=== PATIENT | male | born 1985 | race Caucasian/White ===

== ENCOUNTER 2019-11-16 18:29 | Emergency (ER) | payer MEDICAID, SELFPAY ==
[~2019-11-16] VITALS: Ht 177.8 cm; Wt 70.8 kg
[2019-11-16 18:32] VITALS: BP 117/72
[2019-11-16] MEDS ORDERED: TETanus/Pertussis (Acell)/Diphther VAC/PF (Tdap-Adult) 0.5ml syringe IMVAC ONE (19:35)
[2019-11-16] MEDS ORDERED: iohexol 300mg/ml 100ml inj. ONE (19:38)
[2019-11-16 20:12] LABS: BASOPHILS # (AUTO) 0.1 X10'3 (0-0.2); BASOPHILS % (AUTO) 0.6 % (0-1); EOSINOPHILS % (AUTO) 0.5 % (0-6); HEMATOCRIT 39.2 % (42.0-52.0); HEMOGLOBIN 13.9 g/dl (14.0-17.9); LYMPHOCYTES # (AUTO) 1.7 X10'3 (1.1-4.8); MEAN CORPUSCULAR HEMOGLOBIN 32.8 PG (27.0-31.0); MEAN CORPUSCULAR HGB CONC 35.4 g/dL (33.0-36.5); MEAN CORPUSCULAR VOLUME 92.8 FL (78-98); MEAN PLATELET VOLUME 9.9 FL (7.4-10.4); MONOCYTES # (AUTO) 0.5 X10'3 (0-0.9); MONOCYTES % (AUTO) 5.8 % (2-12); NEUTROPHILS # (AUTO) 6.9 X10'3 (1.8-7.7); NEUTROPHILS % (AUTO) 75.1 % (42-75); PLATELET COUNT 155 X10'3 (140-440); RED BLOOD COUNT 4.23 X10'6 (4.70-6.10); RED CELL DISTRIBUTION WIDTH 12.8 % (11.5-14.5); WHITE BLOOD COUNT 9.2 X10'3 (4.5-11.0)
[2019-11-16 20:22] LABS: ALANINE AMINOTRANSFERASE 29 U/L (12-78); ALBUMIN 3.8 G/DL (3.4-5.0); ALBUMIN/GLOBULIN RATIO 1.2 (1.1-1.5); ALKALINE PHOSPHATASE 85 IU/L (46-116); ANION GAP 8 (8-16); ASPARTATE AMINO TRANSFERASE 21 U/L (10-37); BILIRUBIN,TOTAL 2.1 MG/DL (0.1-1.0); BLOOD UREA NITROGEN 15 MG/DL (7-18); BUN/CREATININE RATIO 18.1 (5.4-32.0); CALCIUM 8.7 MG/DL (8.5-10.1); CHLORIDE 102 MMOL/L (99-107); CREATININE 0.83 MG/DL (0.60-1.10); GLUCOSE 102 MG/DL (70-104); POTASSIUM 3.6 MMOL/L (3.5-5.1); SODIUM 139 MMOL/L (135-145); TOTAL CARBON DIOXIDE 28.9 MMOL/L (24-32); eGFR > 90 ML/MIN
[2019-11-16] MEDS ORDERED: LIDOcaine/epinephrine/tetracaine TOPICAL sol 3 ML syringe TOP ONE ×3 (20:55)
--- NOTE | 2019-11-16 21:20 | NUR ---
tech at bedside cleaning wounds
[2019-11-16] MEDS ORDERED: CEPH250T PO (22:19)
[2019-11-16] MEDS ORDERED: BACI28.42 TOP (22:19)
== END 2019-11-16 22:39 | disposition home or self-care (01) ==
LOC: ER 18:29
DX: S80.11XA Contusion of right lower leg, initial encounter (principal); T24.202A Burn of second degree of unspecified site of left lower limb, except ankle and foot, initial encounter; T31.0 Burns involving less than 10% of body surface; S50.311A Abrasion of right elbow, initial encounter; S20.312A Abrasion of left front wall of thorax, initial encounter; S20.311A Abrasion of right front wall of thorax, initial encounter; R10.11 Right upper quadrant pain; V89.2XXA Person injured in unspecified motor-vehicle accident, traffic, initial encounter; Y93.89 Activity, other specified; Y92.488 Other paved roadways as the place of occurrence of the external cause; Y99.8 Other external cause status
CPT/HCPCS: 16000; 36415; 71260; 74177; 80053; 85025; 90471; 90715; 99285; Q9967

== ENCOUNTER 2019-11-19 12:05 | Day surgery (SDC) | payer MEDICAID ==
[~2019-11-19 12:05] MED LIST: BACI28.42 TOP; CEPH250T PO
[2019-11-19] MEDS ORDERED: LIDOcaine 2% 5ml jelly ONE (12:57)
== END 2019-11-19 13:39 | disposition home or self-care (01) ==
LOC: WOUND CARE 12:05
PROVIDERS: ATTEND Nurse Practitioner
DX: S80.212A Abrasion, left knee, initial encounter (principal); S70.312A Abrasion, left thigh, initial encounter; S80.812A Abrasion, left lower leg, initial encounter; S90.512A Abrasion, left ankle, initial encounter; S50.311A Abrasion of right elbow, initial encounter; L97.821 Non-pressure chronic ulcer of other part of left lower leg limited to breakdown of skin; L98.491 Non-pressure chronic ulcer of skin of other sites limited to breakdown of skin; M79.601 Pain in right arm; V29.9XXA Motorcycle rider (driver) (passenger) injured in unspecified traffic accident, initial encounter; Y93.89 Activity, other specified; Y92.488 Other paved roadways as the place of occurrence of the external cause; Y99.8 Other external cause status
CPT/HCPCS: 97597; 97598

== ENCOUNTER 2019-11-27 09:20 | Day surgery (SDC) | payer MEDICAID ==
[~2019-11-27 09:20] MED LIST changes: -CEPH250T PO
[2019-11-27] MEDS ORDERED: LIDOcaine 2% 5ml jelly ONE (10:05)
== END 2019-11-27 10:53 | disposition home or self-care (01) ==
LOC: WOUND CARE 09:20
PROVIDERS: ATTEND Nurse Practitioner
DX: S80.812D Abrasion, left lower leg, subsequent encounter (principal); S90.512D Abrasion, left ankle, subsequent encounter; S50.311D Abrasion of right elbow, subsequent encounter; S70.312D Abrasion, left thigh, subsequent encounter; S80.212D Abrasion, left knee, subsequent encounter; L97.821 Non-pressure chronic ulcer of other part of left lower leg limited to breakdown of skin; L98.491 Non-pressure chronic ulcer of skin of other sites limited to breakdown of skin; M79.601 Pain in right arm; V29.9XXD Motorcycle rider (driver) (passenger) injured in unspecified traffic accident, subsequent encounter
CPT/HCPCS: 97597; 97598

== ENCOUNTER 2019-12-03 10:45 | Day surgery (SDC) | payer MEDICAID ==
[2019-12-03] MEDS ORDERED: LIDOcaine 2% 5ml jelly ONE (11:07)
== END 2019-12-03 11:49 | disposition home or self-care (01) ==
LOC: WOUND CARE 10:45
PROVIDERS: ATTEND Nurse Practitioner
DX: S90.512D Abrasion, left ankle, subsequent encounter (principal); S80.812D Abrasion, left lower leg, subsequent encounter; S50.311D Abrasion of right elbow, subsequent encounter; L97.821 Non-pressure chronic ulcer of other part of left lower leg limited to breakdown of skin; L98.491 Non-pressure chronic ulcer of skin of other sites limited to breakdown of skin; M79.601 Pain in right arm; F17.200 Nicotine dependence, unspecified, uncomplicated; V29.9XXD Motorcycle rider (driver) (passenger) injured in unspecified traffic accident, subsequent encounter
CPT/HCPCS: 97597

== ENCOUNTER 2020-02-05 11:47 | Emergency (ER) | payer MEDICAID ==
[~2020-02-05] VITALS: Ht 177.8 cm; Wt 0.5 kg
[2020-02-05 12:09] VITALS: BP 117/74
== END 2020-02-05 12:33 | disposition home or self-care (01) ==
LOC: ER 11:47
DX: F10.129 Alcohol abuse with intoxication, unspecified (principal); Y90.9 Presence of alcohol in blood, level not specified; Z00.01 Encounter for general adult medical examination with abnormal findings
CPT/HCPCS: 99281

== ENCOUNTER 2020-06-17 10:10 | Emergency (ER) | payer MEDICAID ==
[~2020-06-17] VITALS: Ht 177.8 cm; Wt 157.0 kg
[2020-06-17 10:18] VITALS: BP 125/81
[2020-06-17] MEDS ORDERED: METH4TAB81 PO (11:24)
[2020-06-17] MEDS ORDERED: CELE-193 PO (11:24)
[2020-06-17] MEDS ORDERED: DICL100G15 TOP (11:24)
[2020-06-17] MEDS ORDERED: ketorolac trometh inj. 60 MG/2 ML VIAL IM ONE (12:20)
--- NOTE | 2020-06-17 12:56 | NUR ---
Patient seen and assessed by provider.
== END 2020-06-17 12:57 | disposition home or self-care (01) ==
LOC: ER 10:10
DX: M54.2 Cervicalgia (principal); M79.602 Pain in left arm; Z72.89 Other problems related to lifestyle; Z79.2 Long term (current) use of antibiotics; Z79.899 Other long term (current) drug therapy
CPT/HCPCS: 72040; 96372; 99283; J1885

== ENCOUNTER 2024-07-17 21:35 | Emergency (ER) | payer MEDICAID, OTHER ==
[~2024-07-17] VITALS: Ht 175.3 cm; Wt 160.0 kg
[2024-07-17 21:35] VITALS: BP 113/80; PULSE 89; TEMP 98.4; O2SAT 97
[~2024-07-17 21:35] MED LIST changes: +DICL100G15 TOP; +METH4TAB81 PO
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
[2024-07-17 21:41] VITALS: RESP 16
== END 2024-07-17 21:53 ==
LOC: ER 21:35
DX: Z02.89 Encounter for other administrative examinations (principal); Z79.899 Other long term (current) drug therapy; Z72.89 Other problems related to lifestyle; V89.2XXA Person injured in unspecified motor-vehicle accident, traffic, initial encounter; Y93.89 Activity, other specified; Y92.89 Other specified places as the place of occurrence of the external cause; Y99.8 Other external cause status
CPT/HCPCS: 99283